=== PATIENT | female | born 1945 | race Caucasian/White ===

== ENCOUNTER 2018-03-14 08:09 | Outpatient (RCR) | payer MEDICARE, BC ==
--- NOTE | 2017-12-27 09:15 | PT INITIAL EVALUATION ---
MEDICAL DIAGNOSIS: Spinal Stenosis of the Lumbar Region TREATMENT DIAGNOSIS: Low back Pain, Generalized Weakness, Abnormality of Gait DATE OF ONSET: 12/26/17 SUBJECTIVE: Karma is a 72 year old female presenting to physical therapy following 1 year gradual onset of lumbar and cervical pain with radiating symptoms. Pt reports that low back pain came on gradually with symptoms mostly in the back at first. However, following decreased exercise with pt unable to perform pool aerobics secondary to a rash on her arm pt reports that pain progressed down into the R leg laterally and posteriorly with pain reaching to just above the knee at worst rated at 5/10. Pain is currently at mid thigh level rated at 2/10 but increases with walking while grocery shopping and standing while cooking. Pt reports back pain is better with lying down and can completely go away sometimes. With the neck pt reports that pain in increased with looking up and turning side to side while shopping with occasional dizziness as well. Additionally pt reports that B legs feel week and achy sometimes with walking and she is afraid of falling. REHAB PROBLEM LIST: Increased Pain Decreased ROM Decreased Strength Decreased Endurance Decreased Balance Decreased Function Decreased ADL's Decreased Mobility Decreased Gait PREVIOUS MEDICAL HISTORY: See EMR OCCUPATION: Retired OBJECTIVE: Posture: Forward trunk lean at waist level with decreased lumbar lordosis ROM: Lumbar ROM: flexion: full without pain, L SB: achy in back full ROM, R SB: minimally restricted with ache in back, Ext: moderate-severe restrictions with dizziness and pain on R side of back. Special Tests: Lower Extremity Functional Scale (LEFS): 27.5/80 Mobility: Repeated Motion Functional Screen: Lumbar: Flexion: no change in pain location or intensity, ext: pain centralized to R hip and buttock region Gait: Pt ambulates with SPC with small step length and decreased foot clearance B. ASSESSMENT: Karma shows signs and symptoms consistent with lumbar and cervical derangement with radiating pain resulting in generalized weakness and unsteady gait. Physical therapy is indicated for this patient to improve the above listed impairments and improve pt function with ADL's and recreational activities. Short Term Goals In 3 weeks pt will improve lumbar ROM to full in all directions without pain for improved function with ADL's. In 6 weeks pt will improve LEFS to 31/80 or less for improved function with ADL' s. In 6 weeks pt will be able to walk 3 laps around the track without pain for improved functional mobility and ambulation with ADL's. Patient's Goals Be able to grocery shop and get back to independent exercise. PLAN: Patient to be seen for Manual Therapy/STM/MET Strengthening/condition Ice/Heat Range of Motion Spinal Stabilization Ultrasound Stretching Iontophoresis Neuromuscular Re-ed Closed Chain Program Electrical Stim Posture/Body mechanics Gait Trg/Balance Trg Biofeedback Home Exercise Program Mech./Manual Traction Therapeutic Activities Pelvic Floor 3x/Week for 6 Weeks If you have any questions, comments, or concerns about this report or plan, please contact me at . Thank you, Starla Graf, PT, DPT, CLT MTDD
--- NOTE | 2018-01-21 10:06 | PT PLAN OF CARE ---
Physician: Patient is being seen: 2-3x/Week Therapist: Starla Graf, PT, DPT, CLT Medical Diagnosis: Spinal Stenosis of the Lumbar Region Treatment Diagnosis: Low back Pain, Generalized Weakness, Abnormality of Gait Date of Onset: 12/26/17 Date of Initial Evaluation: 12/26/17 Date patient was last seen: 01/21/18 Number of treatments: 12 Number of cancellations/No shows: 0 INTERVENTIONS: Manual Therapy/STM/MET Strengthening/condition Ice/Heat Range of Motion Spinal Stabilization Ultrasound Stretching Iontophoresis Neuromuscular Re-ed Closed Chain Program Electrical Stim Posture/Body mechanics Gait Trg/Balance Trg Biofeedback Home Exercise Program Mech./Manual Traction Therapeutic Activities Pelvic Floor GOALS: In 3 weeks pt will improve lumbar ROM to full in all directions without pain for improved function with ADL's. In Progress In 6 weeks pt will improve LEFS to 31/80 or less for improved function with ADL' s. MET In 6 weeks pt will be able to walk 3 laps around the track without pain for improved functional mobility and ambulation with ADL's. In Progress PATIENT'S GOAL: Be able to grocery shop and get back to independent exercise. Status of Patient's Goals: 1/3 MET, 2/3 In Progress Patient Compliance: Fair Prognosis: Fair Reasons for continuing therapy: Karma shows good progression with decreased pain overall in both the back and the R hip. Pt is able to tolerated standing ADL's for longer and has slow, but gradual, progress with endurance with walking. After prolonged walking pt remains to report heaviness in her legs B. Pt has moderate compliance with lumbar extension exercises, but does show improved mobility and decreased pain with all lumbar motions. Further PT to continue to focus on endurance with gait training as well as strengthening of B LE for improved balance and stability. ROM: Lumbar ROM: flexion: full without pain, B SB: Full B with stretch only, Ext : moderate restrictions without pain Strength: LE MMT: Hip: Flexion: 3+/5 B, Ext: R 4/5, L 3+/5, Abd: 4/5 B, Add: 4/ 5 B Special Tests: Lower Extremity Functional Scale (LEFS): 33/80 Mobility: Repeated Motion Functional Screen: Lumbar: Flexion: no change in pain location or intensity, ext: pain centralized to R hip and buttock region Gait Tr: Pt is able to ambulate 2 laps around the track prior to onset of pain radiating down into R LE which is relieved with repeated lumbar ext. If you have any questions or concerns, please feel free to contact me at [phone]. Thank you, Starla Graf, PT, DPT, CLT DINESH
--- NOTE | 2018-02-13 15:04 | PT PLAN OF CARE ---
Physician: Patient is being seen: 1-3x/Week Therapist: Starla Graf, PT, DPT, CLT Medical Diagnosis: Spinal Stenosis of the Lumbar Region Treatment Diagnosis: Low back Pain, Generalized Weakness, Abnormality of Gait Date of Onset: 12/26/17 Date of Initial Evaluation: 12/26/17 Date patient was last seen: 02/13/18 Number of treatments: 21 Number of cancellations/No shows: 0 INTERVENTIONS: Manual Therapy/STM/MET Strengthening/condition Ice/Heat Range of Motion Spinal Stabilization Ultrasound Stretching Iontophoresis Neuromuscular Re-ed Closed Chain Program Electrical Stim Posture/Body mechanics Gait Trg/Balance Trg Biofeedback Home Exercise Program Mech./Manual Traction Therapeutic Activities Pelvic Floor GOALS: In 3 weeks pt will improve lumbar ROM to full in all directions without pain for improved function with ADL's. In Progress In 6 weeks pt will improve LEFS to 31/80 or more for improved function with ADL's. MET In 6 weeks pt will be able to walk 3 laps around the track without pain for improved functional mobility and ambulation with ADL's. MET PATIENT'S GOAL: Be able to grocery shop and get back to independent exercise. Status of Patient's Goals: 2/3 MET, 1/3 In Progress Patient Compliance: Fair Prognosis: Fair Reasons for continuing therapy: Karma shows improved progress with decreased pain as well as improved function. Pt endurance with walking has increased without onset of pain. However, occasional foot scuffling still occurs with fatigue. Strength gains show improvements with improved hip strength and stability decreasing piriformis symptoms of impingement. Further PT to progress pt towards an independent exercise program as well as work towards lingering deficits in community ambulation of stairs and curbs. ROM: Lumbar ROM: flexion: full without pain, B SB: Full B with stretch only, Ext: minimal restrictions without pain Strength: LE MMT: Hip: Flexion: 4-/5 B, Ext: R 4/5, L 4+/5, Abd: 4+/5 B, Add: 5/5 B Special Tests: Lower Extremity Functional Scale (LEFS): 48/80 Gait Tr: Pt is able to ambulate 6 laps around the track without the onset of lumbar or leg pain. If you have any questions or concerns, please feel free to contact me at [phone]. Thank you, Starla Graf, PT, DPT, CLT MTDD
[~2018-03-14 08:09] MED LIST: ASPI-1471 PO; FLU15T TOP; METF-452 PO; OMEP-218 PO; ROSU10TA5 PO; SAXA5TAB4 PO
--- NOTE | 2018-03-14 10:27 | PT PLAN OF CARE ---
Patient is being seen: 2-3x/Week Therapist: Starla Graf, PT, DPT, CLT Medical Diagnosis: Spinal Stenosis of the Lumbar Region Treatment Diagnosis: Low back Pain, Generalized Weakness, Abnormality of Gait Date of Onset: 12/26/17 Date of Initial Evaluation: 12/26/17 Date patient was last seen: 03/14/18 Number of treatments: 28 Number of cancellations/No shows: 0 INTERVENTIONS: Manual Therapy/STM/MET Strengthening/condition Ice/Heat Range of Motion Spinal Stabilization Ultrasound Stretching Iontophoresis Neuromuscular Re-ed Closed Chain Program Electrical Stim Posture/Body mechanics Gait Trg/Balance Trg Biofeedback Home Exercise Program Mech./Manual Traction Therapeutic Activities Pelvic Floor GOALS: In 3 weeks pt will improve lumbar ROM to full in all directions without pain for improved function with ADL's. MET In 6 weeks pt will improve LEFS to 31/80 or more for improved function with ADL's. MET In 6 weeks pt will be able to walk 3 laps around the track without pain for improved functional mobility and ambulation with ADL's. MET PATIENT'S GOAL: Be able to grocery shop and get back to independent exercise. Status of Patient's Goals: 3/3 MET Patient Compliance: Fair Prognosis: Fair Reasons for discharge from therapy: Karma is to discharge from physical therapy at this time secondary to her pending move back to [place]. At the time of discharge Karma has met 3/3 functional goals. However, throughout treatment pt developed several personal goals, including walking for 30 minutes without rest, that remain unmet. Pt showed continued progress towards strength and endurance as well as functional mobility and balance with ADL's and community ambulation. Further PT is recommended for this patient upon return to [place] to continue progress towards personal pt goals. Upon discharge pt is to continue with HEP for strength, maintenance of pain and lumbar mobility maintenance of status. ROM: Lumbar ROM: full without pain Strength: LE MMT: Hip: Flexion: R 4-/5, L 4+/5, Ext: R 4+/5, L 4+/5, Abd: 5/5 B, Add: 4+/5 B Special Tests: Lower Extremity Functional Scale (LEFS): 49/80 Gait Tr: Pt is able to ambulate 6 laps around the track without the onset of lumbar or leg pain. If you have any questions or concerns, please feel free to contact me at [phone]. Thank you, Starla Graf, PT, DPT, CLT MTDD
== END 2018-03-14 14:38 | disposition home or self-care (01) ==
LOC: PT 08:09
PROVIDERS: ATTEND Orthopaedic Surgery Orthopaedic Surgery of the Spine
DX: M48.061 Spinal stenosis, lumbar region without neurogenic claudication (principal); M54.5 Low back pain; R53.1 Weakness; R26.89 Other abnormalities of gait and mobility
CPT/HCPCS: 97162

== ENCOUNTER 2019-01-03 13:00 | Outpatient (RCR) | payer MEDICARE, BC ==
--- NOTE | 2018-11-14 11:53 | PT INITIAL EVALUATION ---
MEDICAL DIAGNOSIS: Balance/Gait/Neuropathy TREATMENT DIAGNOSIS: Abnormality of Gait, Decreased Balance, Generalized Weakness, Lumbar Dysfun DATE OF ONSET: 11/14/18 SUBJECTIVE: Karma is a 73 year old female presenting to physical therapy following a gradual decline in functional status from instability and pain. Pt reports that she use to walk regularly outdoors but now she is afraid to walk anywhere independently because she is too wobbly and is afraid her legs are going to give out on her. Pt has a history of R hip and leg pain which remains present and has increased lately leaving her leg feeling weak like it could buckle easily. Pt was evaluated by a spinal surgeon and was recommended to have surgical intervention for spinal stenosis but would like to try PT first. Pt reports the pain is worse with prolonged standing and walking and improves with lying flat. Pt has difficulty ambulating stairs or walking on unstable surfaces and frequently uses for support whom is older that herself. Pt reports that she is also no longer driving which has contributed to her decreased activity level. Pain in the R leg is typically in the buttocks but occasionally goes into the back or down the side of the leg. Pain is currently rated at 1/10 but is 8/10 at worst with the leg buckling. Pt reports that with fatigue she frequently with lean to the R side which further causes her to be out of balance. Additionally, pt reports change in ability to control bladder function. REHAB PROBLEM LIST: Increased Pain Decreased ROM Decreased Strength Impaired Transfers Decreased Endurance Decreased Balance Decreased Function Decreased ADL's Decreased Mobility Decreased Gait PREVIOUS MEDICAL HISTORY: See EMR OCCUPATION: Retired OBJECTIVE: Posture: Pt presents with forward trunk lean with hinging at the hips and absent lumbar lordosis. ROM: Lumbar ROM: Flexion: full no pain, ext: severely restricted no pain, B SB: full no pain, R Rot: mod-min restrictions with pain in back, L rot: mod-min restrictions with pain in L buttocks. Strength: LE MMT (R/L): Hip: flexion: B 3+/5, Ext: 4-/5, 4/5, Abd: 4-/5, 4/5, add: B 4/4. Knee: ext: 4/5, 4+/5, flex: B 4/4. Ankle: DF: 4-/5, 4/5, PF: B 4/4. Special Tests: Repeated Motion Lumbar Screening: flexion: no change, Ext: no change, R rotation: decreased pain in R hip. Mobility: Pt is able to perform 5 sit<>stands with use of B UE occasionally and L medial knee collapse. Gait: Pt ambulates with SPC with wide ALEX and occasional cane use ever 2-3 steps on the L side. Gait significant for lateral trunk sway and decreased stance phase B. ASSESSMENT: Karma presents with signs and symptoms consistent with generalized weakness secondary to likely neural impingement with lumbar dysfunction leading to abnormality of gait and decreased balance. Physical therapy is indicated for this patient to address the above listed deficits to improve pt safety and mobility with ADL's. Short Term Goals In 3 weeks pt will improve 4 stage balance to tandem B to 20 seconds with eyes open and eyes closed for improved function and stability with ADL's and showering. In 3 weeks pt will be compliant with repeated exercise to decrease neural impingement for improved function with ADL's. In 6 weeks pt will be able to independently perform fall recovery from the floor to standing for improved function with ADL's. In 6 weeks pt will improve B LE strength to 4/5 or greater for improved function with ADL's and community mobility. In 6 weeks pt will be able to walk 5 laps without onset of R LE pain for improved function with ADL's and community mobility. Patient's Goals Decrease pain and improve daily mobility and function with ADL's. PLAN: Patient to be seen for Manual Therapy/STM/MET Strengthening/condition Ice/Heat Range of Motion Spinal Stabilization Ultrasound Stretching Iontophoresis Neuromuscular Re-ed Closed Chain Program Electrical Stim Posture/Body mechanics Gait Trg/Balance Trg Biofeedback Home Exercise Program Mech./Manual Traction Therapeutic Activities Pelvic Floor 3x/Week for 6 Weeks If you have any questions, comments, or concerns about this report or plan, please contact me at . Thank you, Starla Graf, PT, DPT, CLT Referring Provider Signature: Date: MTDD
--- NOTE | 2018-12-10 18:17 | PT PLAN OF CARE ---
Physician: Ken Ellison MD Patient is being seen: 2-3x/Week Therapist: Starla Graf, PT, DPT, CLT Medical Diagnosis: Balance/Gait/Neuropathy Treatment Diagnosis: Abnormality of Gait, Decreased Balance, Generalized Weakness, Lumbar Dysfunction Date of Onset: 11/14/18 Date of Initial Evaluation: 11/14/18 Date patient was last seen: 12/10/18 Number of treatments: 10 Number of cancellations/No shows: 1 INTERVENTIONS: Manual Therapy/STM/MET Strengthening/condition Ice/Heat Range of Motion Spinal Stabilization Ultrasound Stretching Iontophoresis Neuromuscular Re-ed Closed Chain Program Electrical Stim Posture/Body mechanics Gait Trg/Balance Trg Biofeedback Home Exercise Program Mech./Manual Traction Therapeutic Activities Pelvic Floor GOALS: In 3 weeks pt will improve 4 stage balance to tandem B to 20 seconds with eyes open and eyes closed for improved function and stability with ADL's and showering. In 3 weeks pt will be compliant with repeated exercise to decrease neural impingement for improved function with ADL's. MET In 6 weeks pt will be able to independently perform fall recovery from the floor to standing for improved function with ADL's. In 6 weeks pt will improve B LE strength to 4/5 or greater for improved function with ADL's and community mobility. In 6 weeks pt will be able to walk 5 laps without onset of R LE pain for improved function with ADL's and community mobility. PATIENT'S GOAL: Decrease pain and improve daily mobility and function with ADL's. Status of Patient's Goals:1/5 MET, 4/5 In Progress Patient Compliance: Fair Prognosis: Good Reasons for continuing therapy: Karma shows good progression with decreased back pain and neural impingement with repeated lumbar flexion at this time. Little progress has been gained in strength due to focus on impingement prior. However, gait mechanics show improved posture and decreased fatigue with ambulation. Further PT to focus on strengthening and balance for ADL's and community ambulation as well as decreased fall risk. ROM: Lumbar ROM: Flexion: full no pain, ext: moderate restrictions no pain, B SB: full no pain, B rotation: full no pain Strength: LE MMT (R/L): Hip: flexion: B 3+/5, Ext: B 4/5, Abd: B 4/5, add: B 4/4. Knee: ext: 4/5, 4+/5, flex: B 4/4. Ankle: DF: 4-/5, 4/5, PF: B 4+/4. Balance: 4 stage balance test: modified tandem: L 5 sec, R 28 sec, tandem: L 3 sec, R 4 sec Special Tests: Repeated Motion Lumbar Screening: flexion: no change, Ext: no change, R rotation: decreased pain in R hip. Mobility: Pt is able to perform 5 sit<>stands with use of B UE occasionally and L medial knee collapse. If you have any questions, please feel free to contact me at [phone]. Thank you, Starla Graf, PT, DPT, CLT Referring Provider Signature: Date: MTDD
--- NOTE | 2019-01-03 16:54 | PT PLAN OF CARE ---
Physician: Ken Ellison MD Patient is being seen: 2-3x/Week Therapist: Starla Graf, PT, DPT, CLT Medical Diagnosis: Balance/Gait/Neuropathy Treatment Diagnosis: Abnormality of Gait, Decreased Balance, Generalized Weakness, Lumbar Dysfun Date of Onset: 11/14/18 Date of Initial Evaluation: 11/14/18 Date patient was last seen: 01/03/19 Number of treatments: 15 Number of cancellations/No shows: 1 INTERVENTIONS: Manual Therapy/STM/MET Strengthening/condition Ice/Heat Range of Motion Spinal Stabilization Ultrasound Stretching Iontophoresis Neuromuscular Re-ed Closed Chain Program Electrical Stim Posture/Body mechanics Gait Trg/Balance Trg Biofeedback Home Exercise Program Mech./Manual Traction Therapeutic Activities Pelvic Floor GOALS: In 3 weeks pt will improve 4 stage balance to tandem B to 20 seconds with eyes open and eyes closed for improved function and stability with ADL's and showering. MET In 3 weeks pt will be compliant with repeated exercise to decrease neural impingement for improved function with ADL's. MET In 6 weeks pt will be able to independently perform fall recovery from the floor to standing for improved function with ADL's. MET In 6 weeks pt will improve B LE strength to 4/5 or greater for improved function with ADL's and community mobility. Discontinued In 6 weeks pt will be able to walk 5 laps without onset of R LE pain for improved function with ADL's and community mobility. Discontinued PATIENT'S GOAL: Decrease pain and improve daily mobility and function with ADL's. Status of Patient's Goals:3/5 MET, 2/5 Discontinued Patient Compliance: Fair Prognosis: Good Reasons for discharge from therapy: Karma is to discharge from physical therapy at this time secondary to pt moving back to [place]. At the time of discharge pt had good progress towards functional goals with improved strength and balance as well as overall mobility. Lumbar impingement likely from stenosis remained with management of symptoms with repeated flexion, but never full resolution for lasting periods. Pt is to follow up with spinal specialist upon return home. Additionally pt is to continue with HEP program upon discharge to maintain functional gains and further progress with pending surgery. ROM: Lumbar ROM: Flexion: full no pain, ext: moderate restrictions no pain, B SB: full no pain, B rotation: full no pain Strength: LE MMT (R/L): Hip: flexion: 4-/5, 4/5, Ext: 4+/5, 4/5, Abd: B 4/5, add: B 4+/5. Knee: ext: 4+/5, 5-/5, flex: 4/5, 4+/5. Ankle: DF: 4+/5, 5/5, PF: B 4+/5. Balance: 4 stage balance test: modified tandem: L 20 sec, R 20 sec, tandem: L 15 sec, R 18 sec, SLS: L 2 sec, R unable to perform Mobility: Pt is able to perform 5 sit<>stands without use of B UE from a medium surface. If you have any questions, please feel free to contact me at [phone]. Thank you, Starla Graf, PT, DPT, CLT MTDD
== END 2019-01-03 18:00 | disposition home or self-care (01) ==
LOC: PT 13:00
PROVIDERS: ATTEND Orthopaedic Surgery Orthopaedic Surgery of the Spine
DX: R29.898 Other symptoms and signs involving the musculoskeletal system (principal); R53.1 Weakness; G62.9 Polyneuropathy, unspecified
CPT/HCPCS: 97010; 97110; 97112; 97116; 97140; 97162; G0283